=== PATIENT | male | born 1975 | race Caucasian/White ===

== ENCOUNTER 2021-02-28 08:46 | Emergency (ER) | payer OTHER, SELFPAY ==
[2021-02-28 08:56] VITALS: BP 177/102; PULSE 77; RESP 20; TEMP 36.9; O2SAT 98
--- NOTE | 2021-02-28 09:08 | ED.SKABFB ---
HPI - Skin/Abscess/Foreign Bdy General Chief complaint: Skin/Abscess/Foreign Body Stated complaint: Cut on Finger of left Hand Time Seen by Provider: 02/28/21 09:08 Source: patient History of Present Illness HPI narrative: patient presents with laceration to left ring finger. patient caught finger on an engine sub frame. laceration below dip joint. bleeding controlled. unsure of last Tdap MD complaint: laceration Tetanus up to date: no Related Data Home Medications Medication Instructions Recorded Confirmed lisinopril-hydrochlorothiazide 20 tablet PO DAILY 02/28/21 02/28/21 Allergies Allergy/AdvReac Type Severity Reaction Status Date / Time No Known Allergies Allergy Unverified 07/26/16 14:17 Review of Systems Review of Systems: CONSTITUTIONAL: Denies fever, chills, or sweats. EYES: Denies visual changes, redness, or discharge. ENT: Denies rhinorrhea, congestion, sore throat, or otalgia. CARDIOVASCULAR: Denies chest pain, palpitations, or edema. RESPIRATORY: Denies cough or dyspnea. GASTROINTESTINAL: Denies abdominal pain, nausea, vomiting, or diarrhea. GENITOURINARY: Denies dysuria or hematuria. SKIN: Denies rash or itching. MUSCULOSKELETAL: Denies back pain, joint pain, or myalgia. NEUROLOGIC: Denies headache, numbness, or weakness. PSYCHIATRIC: Denies anxiety or depression. PMFSH Social History Social History Gender identity (if verbalized by the patient): Male Comments At time of signature, agree with nursing past medical, surgical, social and family history. There is no relevant family history pertinent to the presenting complaint Exam Narrative: GENERAL: Well-appearing, well-nourished, and in no acute distress. HEAD: Normocephalic, atraumatic. EYES: PERRLA and EOMI. ENT: Nares clear, no rhinorrhea or epistaxis. Mucous membranes moist. NECK: Supple. CHEST: Clear to auscultation. No respiratory distress. HEART: Regular rate and rhythm. No murmur heard. Normal peripheral pulses. ABDOMEN: Soft, nontender, nondistended, normal active bowel sounds. EXTREMITIES: Normal range of motion. No edema3 cm .laceration to left ring finger no swelling, no erythema, normal digit cascade with flexion of fingers, median nerve, ulnar nerve, radial nerve is intact. Normal sensation of each side of each finger, can perform `ok? sign, `cross over finger test of index and middle fingers? and `thumbs up? sign, normal thumb opposition, no scissoring. good capillary refill and radial pulse. normal flexion and extension of fingers and wrist. normal supination at wrist. Normal forearm and elbow exam. SKIN: Warm, dry, no rash. NEURO: No focal deficits. Alert and oriented x3. [place] Coma Scale Eye Opening: Spontaneous 4 Jad Coma Scale Motor: Obeys Commands 6 Jad Coma Scale Verbal: Oriented 5 Jad Coma Scale Total 15 Course Vital Signs Vital signs: Vital Signs Temperature 36.9 C 02/28/21 08:56 Pulse Rate 77 02/28/21 08:56 Respiratory Rate 20 02/28/21 08:56 Blood Pressure 177/102 H 02/28/21 08:56 Pulse Oximetry 98 02/28/21 08:56 Temperature 36.9 C 02/28/21 08:56 Pulse Rate 77 02/28/21 08:56 Respiratory Rate 20 02/28/21 08:56 Blood Pressure 177/102 H 02/28/21 08:56 Pulse Oximetry 98 02/28/21 08:56 Addressed elevated BP today. Today's blood pressure higher than recommended range. 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 Currently patient denies headache, dizziness, vision changes, CP or shortness of breath. Please HOWIE schedule a followup visit with your personal physician for further evaluation and treatment. Including recheck and discussion of your blood pressure. If your symptoms persist, change or worsen significantly before you can contact your personal physician then please, without delay, go to the emergency department for further evaluation Discussed with patient hypertension. Today's blood pressure higher
[2021-02-28] MEDS: TETANUS,DIPHTHERIA,AC PERTUSSIS ADULT (0.5 ML) BOOSTRIX IM (09:19)
== END 2021-02-28 09:40 | disposition home or self-care (01) ==
PROVIDERS: Emergency Provider Nurse Practitioner Family
DX: S61.215A Laceration without foreign body of left ring finger without damage to nail, initial encounter (principal); W45.8XXA Other foreign body or object entering through skin, initial encounter; Z23 Encounter for immunization; I10 Essential (primary) hypertension; Z86.16 Personal history of COVID-19
CPT/HCPCS: 12002; 90471; 90715; 99203; G0463

== ENCOUNTER 2021-09-21 10:06 | Emergency (ER) | payer OTHER, SELFPAY ==
--- NOTE | ~2021-09-21 | XR_ITS ---
EXAMINATION: XR foot RT min 3V, XR ankle RT min 3V EXAM DATE: 09/21/2021 10:33 INDICATION: Rolled rt ankle, pain lateral rt foot/ankle. Initial encounter. TECHNIQUE: Right foot dorsoplantar, lateral and oblique projections obtained and reviewed. Right ank le frontal, lateral and oblique projections obtained and reviewed. Comparison is made to prior examin ation from 07/28/2018. FINDINGS: There is acute fracture of the right cuboid bone at the tarsometatarsal joint with a few mi llimeters of displacement. There is overlying soft tissue swelling. Right metatarsal bones unremark able. The right ankle mortise appears intact. IMPRESSION: Acute mildly displaced cuboid intra-articular fracture at the MTP joint. Reviewed, dictated and finalized at location A. TAILOR IMPRESSION: Acute mildly displaced cuboid intra-articular fracture at the MTP j oint.
[2021-09-21 10:12] VITALS: BP 164/97; PULSE 72; RESP 18; TEMP 36.8; O2SAT 98
--- NOTE | 2021-09-21 10:30 | ED.LOWEXIN ---
HPI - Extremity Injury (Lower) General Chief Complaint: Extremity Injury, Lower Stated Complaint: right ankle pain Time Seen by Provider: 09/21/21 10:30 Source: patient Mode of arrival: ambulatory Limitations: no limitations History of Present Illness HPI Narrative: 46 yo M presents with pain to R foot and R ankle. Last night tripped over dog toy and twisted R foot and ankle. Has been getting around with walker that he had at home. Has not taken any pain medication prior to arrival. ROM decreased due to pain, distal NV Intact. All systems reviewed and negative except as noted above. Related Data Home Medications Medication Instructions Recorded Confirmed lisinopril-hydrochlorothiazide 20 tablet PO DAILY 02/28/21 09/21/21 Allergies Allergy/AdvReac Type Severity Reaction Status Date / Time No Known Allergies Allergy Verified 09/21/21 10:26 Review of Systems Review of Systems: CONSTITUTIONAL: Denies fever, chills, or sweats. EYES: Denies visual changes, redness, or discharge. ENT: Denies rhinorrhea, congestion, sore throat, or otalgia. CARDIOVASCULAR: Denies chest pain, palpitations, or edema. RESPIRATORY: Denies cough or dyspnea. GASTROINTESTINAL: Denies abdominal pain, nausea, vomiting, or diarrhea. GENITOURINARY: Denies dysuria or hematuria. SKIN: Denies rash or itching. MUSCULOSKELETAL: Denies back pain, joint pain, or myalgia. Reports pain and swelling to right foot and ankle. NEUROLOGIC: Denies headache, numbness, or weakness. PSYCHIATRIC: Denies anxiety or depression. All other systems reviewed are negative, except as documented in HPI. PMFSH Social History Social History Gender identity (if verbalized by the patient): Male Comments At time of signature, agree with nursing past medical, surgical, social and family history. There is no relevant family history pertinent to the presenting complaint. Exam Narrative: GENERAL: This is a well-nourished, well-developed patient, in no apparent distress. HEAD: normocephalic, atraumatic. EYES: PERRL. Sclera clear/white. Vision is grossly intact. EARS: External ears normal, auditory canals clear and without drainage, TMs normal without perforation. Hearing grossly intact. NOSE: External nose normal with no obvious nasal discharge, nares without redness, no rhinorrhea. THROAT: Mucous membranes moist, posterior pharynx clear. NECK: Neck supple, non-tender without lymphadenopathy, masses or thyromegaly. CARDIOVASCULAR: Regular rate and rhythm without murmurs, gallops, or rubs. RESPIRATORY: Clear to auscultation. Breath sounds equal bilaterally. No wheezes, rales, or rhonchi. GASTROINTESTINAL: Abdomen soft, non-tender, nondistended. Bowel sounds are active. No hepato-splenomegaly, or palpable masses. No guarding. SKIN: warm, Dry, intact with no suspicious lesions or rash, good texture and turgor. NEURO: awake, alert, and oriented to person, place and time. There were no obvious focal neurologic abnormalities. EXTREMITIES: Mild swelling to lateral aspect R ankle. No significant point tenderness to ankle. Swelling and tenderness to proximal 4th and 5th metarasal. ROM decreased. distal NV intact, pulses 2+ BACK: Nontender without deformity. No CVA tenderness. Course Course Level of Care: Express Care Visit Vital Signs Vital signs: Vital Signs Temperature 36.8 C 09/21/21 10:12 Pulse Rate 72 09/21/21 10:12 Respiratory Rate 18 09/21/21 10:12 Blood Pressure 164/97 H 09/21/21 10:12 Pulse Oximetry 98 09/21/21 10:12 Temperature 36.8 C 09/21/21 10:12 Pulse Rate 72 09/21/21 10:12 Respiratory Rate 18 09/21/21 10:12 Blood Pressure 164/97 H 09/21/21 10:12 Pulse Oximetry 98 09/21/21 10:12 Reviewed MDM - Extremity Injury (Lower) MDM Narrative Medical decision making narrative: posterior short leg placed by mahin Leach. distal NV intact after application. referred to orthopedics for follow up. Patient is aware of diagnosis, understands
== END 2021-09-21 11:05 | disposition home or self-care (01) ==
PROVIDERS: Emergency Provider Nurse Practitioner Family
DX: S92.211A Displaced fracture of cuboid bone of right foot, initial encounter for closed fracture (principal); X50.9XXA Other and unspecified overexertion or strenuous movements or postures, initial encounter; I10 Essential (primary) hypertension; Z86.16 Personal history of COVID-19
CPT/HCPCS: 29515; 73610; 73630; 99214; G0463

== ENCOUNTER 2021-12-20 15:31 | Emergency (ER) | payer OTHER, SELFPAY ==
[2021-12-20 15:34] VITALS: BP 196/116; PULSE 79; RESP 16; TEMP 36.6; O2SAT 98
--- NOTE | 2021-12-20 15:55 | ED.NAVMDI ---
HPI - Nausea/Vomiting/Diarrhea General Chief complaint: Abdominal Pain Stated complaint: abdo pain Time Seen by Provider: 12/20/21 15:35 Source: patient Mode of arrival: ambulatory Limitations: no limitations History of Present Illness HPI Narrative: Mr. Michaels is a 46-year-old male patient presenting to the clinic today with complaints of nausea, vomiting, diarrhea x3 days. He reports that his symptoms have resolved yesterday and he would like to go back to work. States that his boss will not allow him to go back to work unless he is evaluated and given a work note to return. He denies any current symptoms. His blood pressure is elevated in the clinic however he just took his blood pressure pill approximately 1 hour prior to arrival in the clinic. Related Data Home Medications Medication Instructions Recorded Confirmed lisinopril 20 20 tablet PO DAILY 02/28/21 09/21/21 mg-hydrochlorothiazide 12.5 mg tablet Allergies Allergy/AdvReac Type Severity Reaction Status Date / Time No Known Allergies Allergy Verified 12/20/21 15:42 Review of Systems Review of Systems: Pertinent positives per HPI. Patient denies any fever, chills, rash, headache, visual changes, dizziness, cough, runny nose, sore throat, shortness of breath, chest pain, palpitations, nausea, vomiting, diarrhea, constipation, abdominal pain, or any urinary issues. PMFSH Social History Social History Gender identity (if verbalized by the patient): Male Comments At the time of my signature, I reviewed and agree with the nursing past medical, surgical, social, and family history. There is no relevant family history pertinent to the patient complaint. Exam Narrative: General: Well-developed, well nourished, in no apparent distress. Head: Normocephalic, atraumatic. Cardio: Regular rate and rhythm, s1 and s2 normal, no murmur appreciated. Resp: Clear to auscultation bilaterally, no rhonchi, rales, wheezing or rubs. Abdomen: Soft, pliable, bowel sounds present in all quadrants, non-tender to palpation, no organomegly, no CVAT tenderness. Course Course Emergency Course: Portions of this record may have been created with voice recognition software. Level of Care: Express Care Visit Vital Signs Vital signs: Vital Signs Temperature 36.6 C 12/20/21 15:34 Pulse Rate 79 12/20/21 15:34 Respiratory Rate 16 12/20/21 15:34 Blood Pressure 196/116 H 12/20/21 15:34 Pulse Oximetry 98 12/20/21 15:34 Oxygen Delivery Room Air 12/20/21 15:34 Temperature 36.6 C 12/20/21 15:34 Pulse Rate 79 12/20/21 15:34 Respiratory Rate 16 12/20/21 15:34 Blood Pressure 196/116 H 12/20/21 15:34 Pulse Oximetry 98 12/20/21 15:34 Oxygen Delivery Room Air 12/20/21 15:34 Vital signs reviewed MDM - Nausea/Vomiting/Diarrhea MDM Narrative Medical decision making narrative: I am of assessment patient is resting comfortably on the exam table. He denies any nausea vomiting or diarrhea at this time. He denies any abdominal pain. He denies any fever or chills. I suspect that the patient had a gastroenteritis and this is resolved is able to return to work as long as he is fever free. Differential Diagnosis Differential diagnosis: Likely food poisoning and gastroenteritis Discharge Plan Discharge Clinical Impression: Gastroenteritis Patient Disposition: Home, Self-Care Condition: Stable Instructions: Gastroenteritis (ED) Additional Instructions: Reports that his symptoms have resolved May return to work without restrictions Follow-up with your PCP as needed Prescriptions: No Action lisinopril-hydrochlorothiazide 20-12.5 mg tablet 20 tablet PO DAILY Follow-up/Referrals: PHYSICIAN NOT ON STAFF,NONSTAFF [Primary Care Provider] - Stand Alone Forms: Work/School Release IP Time of Disposition: 15:57 [facility]
[2021-12-20 16:01] VITALS: BP 165/87; PULSE 68; O2SAT 99
== END 2021-12-20 16:01 | disposition home or self-care (01) ==
PROVIDERS: Emergency Provider Nurse Practitioner Family
DX: K52.9 Noninfective gastroenteritis and colitis, unspecified (principal); I10 Essential (primary) hypertension; Z86.16 Personal history of COVID-19
CPT/HCPCS: 99211; G0463